=== PATIENT | female | born 1955 | race Caucasian/White ===

== ENCOUNTER 2019-12-29 08:09 | Outpatient (CLI) | payer OTHER | END 2019-12-29 08:12 | disposition home or self-care (01) | LOC: SONOGRAMA 08:09 | PROVIDERS: ATTEND Pathology Anatomic Pathology & Clinical Pathology | DX: E04.1 Nontoxic single thyroid nodule (principal) ==

== ENCOUNTER 2021-04-29 12:27 | Day surgery (SDC) | payer OTHER | END 2021-04-29 16:50 | disposition home or self-care (01) | LOC: AMB-ENDOS 12:27 | PROVIDERS: ATTEND Internal Medicine Gastroenterology | DX: K80.50 Calculus of bile duct without cholangitis or cholecystitis without obstruction (principal); Z20.822 Contact with and (suspected) exposure to COVID-19 ==

== ENCOUNTER 2024-01-14 06:27 | Day surgery (SDC) | payer OTHER ==
[~2024-01-14 06:27] MED LIST: ALTACE5 MG PO; CARVEDILOL12.5 MG; METFORMIN HCL500 M3 PO; PRAVASTATIN SOD40 MG PO
[2024-01-14] MEDS ORDERED: METRONIDAZOLE/SODIUM CHLORIDE 500 MG/100 ML PIGGYBACK IV ONE (11:45)
[2024-01-14] MEDS ORDERED: SUGAMMADEX SODIUM 200 MG/2 ML VIAL IV ONE (13:00)
== END 2024-01-14 16:40 | disposition home or self-care (01) ==
LOC: CIR.AMB 06:27
PROVIDERS: ATTEND Obstetrics & Gynecology
DX: D26.1 Other benign neoplasm of corpus uteri (principal); D39.0 Neoplasm of uncertain behavior of uterus; N95.0 Postmenopausal bleeding; Z88.0 Allergy status to penicillin; Z91.041 Radiographic dye allergy status; Z88.6 Allergy status to analgesic agent; I10 Essential (primary) hypertension; E11.9 Type 2 diabetes mellitus without complications